=== PATIENT | female | born 1955 | race Caucasian/White ===

== ENCOUNTER 2017-08-02 17:04 | Emergency (ER) | payer MEDICAID ==
[~2017-08-02 17:04] MED LIST: APAP/HYDROCODON1 T10 PO; ECO81 PO; FLA500 PO; LAC PO; LANTUS SOLOS100 U/M1 SQ; LEVAQUIN750 MG PO; LOVASTATIN40 MG PO
[2017-08-02 18:03] LABS: microscopic required? YES; urine erythrocyte 1+ (NEGATIVE)
[2017-08-02 19:55] VITALS: BP 142/86
== END 2017-08-02 19:55 | disposition home or self-care (01) ==
LOC: ED 17:04
PROVIDERS: Emergency Medicine
DX: N39.0 Urinary tract infection, site not specified (principal); E11.9 Type 2 diabetes mellitus without complications; I10 Essential (primary) hypertension; E78.00 Pure hypercholesterolemia, unspecified
CPT/HCPCS: J1100; J1885